=== PATIENT | male | born 1945 | race Caucasian/White ===

== ENCOUNTER 2017-02-14 15:35 | Emergency (ER) | payer MEDICARE ==
[2017-02-14 16:07] VITALS: BP 201/107
--- NOTE | 2017-02-14 16:39 | EDM.PDOC ---
ED HPI GENERAL MEDICAL PROBLEM - General Chief Complaint: Gastrointestinal Problem Stated Complaint: SOMETHING IN THROAT Time Seen by Provider: 02/14/17 16:15 Source of Information: Reports: Patient History Limitations: Reports: No Limitations - History of Present Illness INITIAL COMMENTS - FREE TEXT/NARRATIVE: Patient presents to ER today with complaints of throat pain and feeling of food stuck in throat. Josesito reports he was eating steak last night at 2100, felt a piece lodge in his throat. He reports vomiting twice after incident and going to bed. He states he woke up this morning, drank some coffee and had an emesis with coffee and bile in it. He states he has had the feeling of food stuck in his throat all day. Onset Date: 02/13/17 Onset Time: 21:00 Duration: Day(s): Severity: Moderate Improves with: Reports: None - Related Data Allergies Allergy/AdvReac Type Severity Reaction Status Date / Time No Known Allergies Allergy Verified 02/14/17 16:10 Home Meds: Home Meds Ibuprofen 02/14/17 [History] Ranitidine [Zantac] 02/14/17 [History] Past Medical History Gastrointestinal History: Reports: GERD Musculoskeletal History: Reports: Fracture - Past Surgical History HEENT Surgical History: Reports: Cataract Surgery Other Neurological Surgeries/Procedures: States he hashad a minor brain bleed in the past. Social & Family History - Tobacco Use Smoking Status *Q: Former Smoker Used Tobacco, but Quit: No - Caffeine Use Caffeine Use: Reports: Coffee, Soda - Alcohol Use Days Per Week of Alcohol Use: 7 Number of Drinks Per Day: 2 Total Drinks Per Week: 14 - Recreational Drug Use Recreational Drug Use: No ED ROS GENERAL - Review of Systems Review Of Systems: See Below Constitutional: Denies: Fever, Chills, Weakness HEENT: Reports: Throat Pain, Other (Sensation of food bolus with pain. ). Denies: Throat Swelling Respiratory: Denies: Shortness of Breath, Wheezing, Pleuritic Chest Pain, Cough , Sputum, Hemoptysis Cardiovascular: Denies: Chest Pain, Dyspnea on Exertion, Edema, Lightheadedness , Orthopnea, Palpitations, PND Endocrine: Reports: No Symptoms GI/Abdominal: Reports: Difficulty Swallowing, Vomiting, Other (Sensation of food bolus since 2100 yesterday. ). Denies: Abdominal Pain, Constipation, Diarrhea, Decreased Appetite, Distension, Nausea : Reports: No Symptoms Musculoskeletal: Reports: No Symptoms Skin: Denies: Cyanosis, Jaundice, Mottled, Pallor, Rash Neurological: Denies: Confusion, Dizziness, Headache, Numbness, Tingling, Weakness Psychiatric: Reports: No Symptoms Hematologic/Lymphatic: Reports: No Symptoms Immunologic: Reports: No Symptoms ED EXAM, GI/ABD - Physical Exam Exam: See Below Text/Narrative:: Josesito is a 71 year old who presents with complaints of food bolus since yesterday at 2100. During examination he reports sensation resolved. Exam Limited By: No Limitations General Appearance: Alert, WD/WN, No Apparent Distress Eyes: Bilateral: Normal Appearance, EOMI Ears: Normal External Exam, Normal Canal, Hearing Grossly Normal, Normal TMs Nose: Normal Inspection, Normal Mucosa, No Blood Throat/Mouth: Normal Inspection, Normal Lips, Normal Teeth, Normal Gums, Normal Oropharynx, Normal Voice, No Airway Compromise Head: Atraumatic, Normocephalic Neck: Normal Inspection, Supple, Non-Tender, Full Range of Motion. No: Lymphadenopathy (R), Lymphadenopathy (L) Respiratory/Chest: No Respiratory Distress, Lungs Clear, Normal Breath Sounds, No Accessory Muscle Use, Chest Non-Tender Cardiovascular: Normal Peripheral Pulses, Regular Rate, Rhythm, No Edema, No Gallop, No Murmur GI/Abdominal: Normal Bowel Sounds, Soft, Non-Tender, No Organomegaly, No Distention, No Mass Extremities: Normal Inspection, Normal Range of Motion, Non-Tender, No Pedal Edema, Normal Capillary Refill Neurological: Alert, Oriented, CN II-XII Intact, Normal Cognition, Normal Gait, No Motor/Sensory Deficits Psychiatric: Normal Affect, Normal Mood Skin Exam: Warm, Dry, Intact, Normal Color, No Rash Lymphatic: No Adenopathy Course - Vital Signs Last Recorded V/S: Last Vital Signs Temp 36.8 C 02/14/17 16:10 Pulse 97 02/14/17 16:10 Resp 12 02/14/17 16:10 BP 201/107 H 02/14/17 16:10 Pulse Ox 96 02/14/17 16:10 - Re-Assessments/Exams Free Text/Narrative Re-Assessment/Exam: 02/14/17 16:37 During examination, patient reported "I feel better now, I don't feel like anything is stuck". Patient will be provided water and pudding to swallow. Free Text/Narrative Re-Assessment/Exam: 02/14/17 16:45 Patient ate 100% pudding cup, water and soda pop without difficulty, no emesis. Departure - Departure Time of Disposition: 16:45 Disposition: Home, Self-Care 01 Condition: Good Clinical Impression: Sudden blockage of esophagus, GERD (gastroesophageal reflux disease) - Discharge Information Referrals: Odin Guillen MD [Primary Care Provider] - Forms: ED Department Discharge Additional Instructions: You suffered from a food bolus - or something stuck in your esophagus that resolved without intervention. Take your zantac 150mg PO twice per day until in to see primary care provider ( due to possible irritation to your esophagus). Elevating the head of your bed a few inches can also assist with acid reflux. Follow up with your primary care provider within the next 2 weeks for recheck and possible need of EGD and dilation of your esophagus. Make sure you eat small bites of food and chew well. It is best to avoid foods that can become stuck easily such as stringy meats, steak or pineapple. Return for any worsening, fever, chills, continued vomiting, issues or concerns. - Assessment/Plan Assessment:: Food bolus - resolved GERD Plan: Patient will be discharged to home, making sure he eats small bites and chews food thoroughly. Limit meats, pineapples or foods likely to get stuck in esophagus. Follow up with primary care provider Dr. Guillen in [place], [place] for possible need of EGD and dilation of esophagus.
== END 2017-02-14 16:58 | disposition home or self-care (01) ==
LOC: JP.ED 15:35
DX: T18.128A Food in esophagus causing other injury, initial encounter (principal); K21.9 Gastro-esophageal reflux disease without esophagitis; Z98.49 Cataract extraction status, unspecified eye; Z87.891 Personal history of nicotine dependence
CPT/HCPCS: 99282; 99283